=== PATIENT | female | born 1995 | race Caucasian/White ===

== ENCOUNTER → 2022-04-02 08:18 | Outpatient (CLI) | payer OTHER, SELFPAY ==
--- NOTE | ~2022-04-02 | US_ITS ---
US breast RT limited DATE: 04/02/2022 08:30 INDICATION: Right breast lump at 10:00 3 weeks TECHNIQUE: Real-time and color flow imaging targeted area clinical complaint of right breast lump 10: 00 6 cm from nipple COMPARISON: None FINDINGS: No suspicious mass or shadowing is detected at the area of clinical complaint. No cyst or o ther significant sonographic finding is noted. IMPRESSION: BI-RADS Category 1: Negative Reviewed, dictated and finalized at [facility]. Reviewed, dictated and finalized at location [facility]. [employer]ACH[employer]
== END ==
PROVIDERS: PCP Physician Assistant; Visit Provider Obstetrics & Gynecology
DX: N63.12 Unspecified lump in the right breast, upper inner quadrant (principal)
CPT/HCPCS: 76642